=== PATIENT | female | born 1980 | race African-American/Black ===

== ENCOUNTER 2017-05-12 10:11 | Emergency (ER) | payer OTHER ==
--- NOTE | ~2017-05-12 | CT4 ---
[facility] RADIOLOGY TEXT RESULTS PATIENT: DARSHANA CARRASCO LOCATION: SED : 78 UNIT #: [id number] AGE: [address]: Facundo Silva MD SEX: F ORDER DR: [id number] [address] [address] [id number] E MR#: [id number] #: [id number] NAME: DARSHANA CARRASCO : 1980 SEX: F STUDY DATE/TIME: 05/12/2017 11:34 UNIT: SED ROOM: STUDY DESCRIPTION: CT Abd and Pelv Wo Cont Attending Physician: Facundo Silva M.D. Ordering Physician: Facundo Silva M.D. Primary Care Physician: No Primary Care Physician MEDICAL IMAGING REPORT This report is preliminary unless electronic signature is present. EXAM CT abdomen and pelvis without contrast Date: 05/12/2017 HISTORY Mild flank pain and headaches since Wednesday. COMPARISON None. PROCEDURE 3 mm noncontrast axial images through the abdomen and pelvis. Enteric contrast was not administered. Sagittal coronal reformed images were obtained. TECHNIQUE This CT exam was performed with one or more of the following radiation dose reduction techniques: automatic exposure control, adjustment of mA and/or kV according to patient size, and iterative reconstruction. FINDINGS Abdomen findings: Multifocal left renal cortical scarring is present. The right kidney has a normal noncontrast appearance. No urinary tract stone, hydronephrosis or perinephric inflammation is seen. The appendix is normal. Limited evaluation bowel due to lack of enteric contrast but no focal bowel inflammation is identified. No focal bowel inflammation is identified. Sparse scattered diverticular changes are present within the colon without evidence of acute diverticulitis. [facility] RADIOLOGY TEXT RESULTS PATIENT: DARSHANA CARRASCO LOCATION: SED : 79 UNIT #: [id number] AGE: [address]: Facundo Silva MD SEX: F ORDER DR: Lung bases are clear. Noncontrast appearance of the liver, gallbladder, spleen, pancreas and adrenal glands is within normal limits. Bowel is non-thickened and noninflamed and the appendix is normal. Pelvis findings: Urinary bladder, uterus and rectum are within normal limits. No pelvic adenopathy or free fluid. No acute osseous abnormalities. IMPRESSION 1. No acute findings in the abdomen and pelvis. There is no CT explanation for the patient's flank pain. 2. No urinary tract stone or hydronephrosis or perinephric inflammation. Urinary bladder is normal. 3. Multifocal left renal cortical scarring. 4. Normal appendix. 5. Sparse uncomplicated colonic diverticulosis. Dictated by... Emerald Wyatt M.D. THIS IS AN ELECTRONICALLY VERIFIED REPORT Emerald Wyatt M.D. at 05/13/2017 9:40 AM SHERIE/mark TD: 05/12/2017 13:16 JOB #: [id number] MEDICAL IMAGING REPORT Page 1 of 1
[~2017-05-12 10:11] MED LIST: ALBUTEROL17 GM INH; ALKA-SELTZ PLUS1 CAP PO; EXCEDRIN ASA FR1 TA1 PO; IBUPROFEN PO
[2017-05-12] MEDS ORDERED: NORVASC2.5 MG PO (10:29)
[2017-05-12 10:47] LABS: URINE SOURCE CLEAN CATCH
[2017-05-12 10:50] LABS: URINE APPEARANCE SL CLOUDY; URINE BILIRUBIN NEG (NEG); URINE BLOOD 2+ (NEG); URINE COLOR YELLOW; URINE GLUCOSE NEG (NORM); URINE KETONE NEG (NEG); URINE LEUKOCYTE ESTERASE NEG (NEG); URINE NITRATE NEG (NEG); URINE PH 5.5 (5-8); URINE PROTEIN NEG (NEG); URINE SPECIFIC GRAVITY 1.025 (1.003-1.035); URINE UROBILINOGEN 0.2 MG/DL (NORM)
[2017-05-12 10:52] LABS: MICRO INDICATED? YES
[2017-05-12 10:55] LABS: URINE BACTERIA 1+ (NEG); URINE SQUAMOUS EPITHELIAL CELL FEW /[HPF]
[2017-05-12 12:03] LABS: BASOPHIL# 0.1 X10e3 (0-0.3); BASOPHIL% 1.2 % (0-2.5); EOSINOPHIL# 0.1 X10e3 (0-0.7); HEMATOCRIT 38.1 % (35.0-45.0); HEMOGLOBIN 12.6 gm/dL (12.0-16.0); LYMPHOCYTE# 3.1 X10e3 (1.0-3.5); LYMPHOCYTE% 32.9 % (17.0-45.0); MEAN CELL VOLUME 77.1 FL (83-96); MEAN CORPUSCULAR HEMOGLOBIN 25.4 PG (28-34); MEAN PLATELET VOLUME 9.2 FL (6.5-11.5); MONOCYTE# 0.4 X10e3 (0-1.0); MONOCYTE% 4.4 % (3.0-12.0); NEUTROPHIL# 5.6 X10e3 (1.5-7.1); NEUTROPHIL% 60.5 % (40-75); PLATELET COUNT 363 X10e3 (140-420); RED BLOOD COUNT 4.94 X10e (3.90-5.30); RED CELL DISTRIBUTION WIDTH 16.3 % (11.0-15.5); WHITE BLOOD COUNT 9.3 X10e3 (4.0-10.5)
[2017-05-12 12:07] LABS: DIFF IND NO
[2017-05-12 12:19] LABS: BILIRUBIN,TOTAL 0.2 mg/dL (0.2-2.0); CALCIUM SERUM 8.8 mg/dL (8.4-10.2); CREATININE SERUM 0.8 mg/dL (0.6-1.4); GLOM FILT RATE Estimated 108.5 mL/min (>60); PROTEIN TOTAL SERUM 8.1 g/dL (6.0-8.3)
== END 2017-05-12 13:10 | disposition home or self-care (01) ==
LOC: SED 10:11
PROVIDERS: Emergency Medicine
DX: R10.9 Unspecified abdominal pain (principal); R31.9 Hematuria, unspecified; F17.210 Nicotine dependence, cigarettes, uncomplicated; Z79.899 Other long term (current) drug therapy
CPT/HCPCS: 36415; 74176; 80053; 81003; 84703; 85025; 96361; 96374; 96375; 99284; J2270; J2405